=== PATIENT | male | born 1945 | race Caucasian/White ===

== ENCOUNTER → 2016-05-27 | Outpatient (CLI) | payer MEDICARE, OTHER ==
[~2016-05-27] MED LIST: ARICEPT PO; ASPIRIN; ASPIRIN EC81 M1 PO; CALCIUM CARBON600 M1 PO; CELEBREX; DIAZEPAM; LEVOXYL; MELATONIN3 M4 PO; MULTI VITAMIN1 EACH PO; MULTI-VITAMIN1 TAB; PRILOSEC PO; PROZAC; PROZAC40 MG DOB; SEROQUEL; SEROQUEL400 MG DOB; SYNTHROID137 MCG PO; TOPAMAX; VALIUM10 MG PO; VIT C; VITAMIN C1000 M1 PO; WELLBUTRIN SR PO
--- NOTE | ~2016-05-27 | MR187 ---
[facility] A Service of [facility] RADIOLOGY TEXT RESULTS PATIENT: ROSARIO MARIA LOCATION: [facility] : 47 UNIT #: [id number] AGE: [address]: Eze Meade MD SEX: M ORDER DR: [id number] [address] [id number] MR#: [id number] Acc #: [id number] NAME: ROSARIO MARIA : 1945 SEX: M STUDY DATE/TIME: 05/27/2016 10:28 UNIT: [facility] ROOM: STUDY DESCRIPTION: MR Wrist Wo Contrast Lt Attending Physician: Eze Meade M.D. Referring Physician: Eze Meade M.D. Ordering Physician: Eze Meade M.D. Primary Care Physician: Eze Meade M.D. MRI CENTER REPORT This report is preliminary unless electronic signature is present. EXAM MRI of the left wrist without contrast HISTORY 71-year-old male complains of decreased range of motion, increasing edema, swelling and rash to hand and wrist. Past history of carpal tunnel surgery. Complains of wrist pain. FINDINGS Multiplanar multiecho imaging was performed of the left wrist utilizing a high field magnet and dedicated protocol. The study is degraded due to motion artifact but felt to be diagnostic. Examination demonstrates extensive multifocal edema throughout the carpal bones in a nonspecific pattern. This is most prominent within the scaphoid and triquetral bones. Irregularity and loss of cortex along the proximal pole of the scaphoid could represent a developing erosion. There is complete tear of the scapholunate ligament. There is scapholunate interval widening. Small central perforation within the TFCC. Lunatotriquetral ligament appears intact. Generalized soft tissue swelling and edema about the hands and wrists. Effusion seen within the distal radioulnar joint and also within the radiocarpal and midcarpal joint with evidence of synovial debris. There is prominent soft tissue over the dorsum of the wrist which is nonspecific but could represent possible tophi associated with gout. Complex signal also noted about the distal ulna and ulnar styloid with marrow edema within the distal ulna and ulnar styloid. Marked soft tissue swelling and edema about the hands and wrists. Fluid about the extensor carpi ulnaris tendon sheath compatible with tenosynovitis. Arthritic changes noted at the first CMC joint. Carpal tunnel unremarkable. Median and ulnar nerves appear normal. IMPRESSION 1. Abnormal MRI of the left wrist demonstrating diffuse circumferential STS. [facility] A Service of [facility] RADIOLOGY TEXT RESULTS PATIENT: ROSARIO MARIA LOCATION: [facility] : [birth year] UNIT #: [id number] AGE: [address]: Eze Meade MD SEX: M ORDER DR: soft tissue swelling and edema. Joint effusions involving the distal radioulnar joint, radiocarpal joint and midcarpal joint as well as multifocal marrow edema throughout the carpal bones and marrow edema in the distal ulna. Questionable early erosive changes within the proximal pole of the scaphoid as well as soft tissue swelling and possible mass or tophus overlying the dorsum of the wrist. Changes may represent crystalline or inflammatory arthropathy. Crystalline arthropathy such as gout is favored and further evaluation with joint aspiration fluid analysis is recommended. 2. Chronic-appearing scapholunate ligament tear with scapholunate interval widening. Mild proximal migration of the capitate. Probable developing DC or dorsal intercalated segmental instability. 3. ECU or extensor carpi ulnaris tenosynovitis. Dictated by... Mayur Wood M.D. THIS IS AN ELECTRONICALLY VERIFIED REPORT Mayur Wood M.D. at 05/28/2016 12:04 PM Nannette TD: 05/28/2016 08:49 JOB #: [id number] MRI CENTER REPORT Page 1 of 1
== END | disposition home or self-care (01) ==
LOC: SMRI 09:33
DX: M25.532 Pain in left wrist (principal); R21 Rash and other nonspecific skin eruption; R60.9 Edema, unspecified; M25.432 Effusion, left wrist; S63.8X2D Sprain of other part of left wrist and hand, subsequent encounter; M65.9 Synovitis and tenosynovitis, unspecified
CPT/HCPCS: 73221